=== PATIENT | male | born 1995 | race Caucasian/White ===

== ENCOUNTER 2017-06-13 06:03 | Day surgery (SDC) | payer OTHER ==
[2017-06-13] MEDS ORDERED: Ketamine HCl 50 MG/ML IJ ONE (06:04)
[2017-06-13] MEDS ORDERED: DIPRIVAN 200 MG/20 ML IV ONE (06:04)
[2017-06-13] MEDS ORDERED: Lactated Ringers 1,000 ML IV SCH (06:30)
[2017-06-13 08:04] VITALS: BP 144/74; PULSE 81; O2SAT 97
--- NOTE | 2017-06-13 08:14 | OP ---
SURGERY DATE/TIME: 06/13/2017 0657 PREOPERATIVE DIAGNOSIS: Abdominal pain. POSTOPERATIVE DIAGNOSIS: Mild gastritis. PROCEDURE: Esophagogastroduodenoscopy with biopsy. SURGEON: Dr. Tillman. ANESTHESIA: Medications were given by the anesthesia department. BRIEF HISTORY: The patient is a 21 year old white male patient who reports two years of abdominal pain. He reports everything that he has used [id number] has not been helpful. He reports he mostly uses Tums for relief. He denies the use of any anti-inflammatories. The patient is felt to need to have endoscopic evaluation. He was appraised of the procedure including the risk of perforation, phlebitis, untoward reaction to medication, bleeding and missed lesions. The patient verbalized his understanding and desired to have the procedure performed. DESCRIPTION OF PROCEDURE: The patient was given the medications by the anesthesia department. He had continuous pulse oximetry, ECG monitoring, intermittent blood pressure monitoring and tidal CO2 monitoring during the examination. He was placed in the left lateral decubitus position. A bite block was placed. The flexible Olympus gastroscope was used to intubate the oropharynx and the scope was easily introduced into the esophagus which was normal throughout its length. The stomach was entered where normal gastric rugal folds were seen. The gastric leonardo was suctioned dry. The stomach was then re-insufflated and the scope was passed along the greater curvature of the stomach to the antrum. The pylorus was encountered and intubated. The duodenum inspected and found to be normal. The scope is withdrawn towards the stomach. Again, a retroflex view of the lesser curvature, fundus and cardia regions of the stomach appeared to be normal. The scope was then redirected towards the antrum and biopsies were obtained to rule out the presence of Helicobacter pylori-type organisms. The scope was then removed from the patient who tolerated the procedure well and was [facility].
== END 2017-06-13 08:11 | disposition home or self-care (01) ==
LOC: SDC 06:03
PROVIDERS: ATTEND Family Medicine
PROC: 0DB78ZX Excision of Stomach, Pylorus, Via Natural or Artificial Opening Endoscopic, Diagnostic (ICD-10-PCS; principal; 2017-06-13)
DX: K29.70 Gastritis, unspecified, without bleeding (principal)
CPT/HCPCS: 00740; 88305; J2704